=== PATIENT | female | born 1935 | race Caucasian/White ===

== ENCOUNTER 2018-03-12 14:42 | Inpatient (IN) | payer MEDICARE, OTHER ==
[~2018-03-12] VITALS: Ht 165.1 cm; Wt 66.7 kg
[2018-03-12 15:00] VITALS: BP 198/89
[2018-03-12] MEDS ORDERED: VANCOMYCIN 1GM/NS 250 ML 250 ML IV SCH ×2 (15:30→17:00)
[2018-03-12 15:47] VITALS: BP 198/89
--- NOTE | 2018-03-12 15:50 | History and Physical ---
An 82-year-old female with a past medical history positive for diabetes and hypertension. The [facility] due to the fact that she was having some cellulitis of the right big toe with osteomyelitis. REVIEW OF SYSTEMS CARDIOVASCULAR: No chest pain or palpitation. RESPIRATORY: No shortness of breath. No cough. GASTROINTESTINAL: No nausea, vomiting or diarrhea. GENITOURINARY: No frequency and no dysuria. ALLERGIES: NOT ALLERGIC TO ANY MEDICATION. SOCIAL HISTORY: She lives in a [facility]. She does not smoke. She does not drink. PAST MEDICAL HISTORY: Positive for diabetes and hypertension. PHYSICAL EXAMINATION HEART: Shows regular rhythm. Normal S1 and S2 sounds. LUNGS: Clear bilaterally. EXTREMITIES: Show the swelling, redness and tenderness of the right big toe. ABDOMEN: Soft, nontender and no distention. No visceromegaly. FINAL IMPRESSION 1. Osteomyelitis of the right big toe. 2. Uncontrolled hypertension. 3. Diabetes mellitus, type 2. 4. Dysphagia. PLAN OF TREATMENT: Going to order a CBC, BMP, MRI of the right foot. Consult Dr. Yarbrough for infectious disease. Consult Dr. Mae from podiatry. We are going to also order vancomycin 1 g IVPB twice a day. Cefepime 1 g IVPB twice a day. We are going to order an arterial Doppler on both lower extremities. Resume [facility] medications. Diet is diabetic diet and low-salt diet. Continue monitoring blood sugar a.c. and at night. Resume [facility] medications. I discussed the case with the patient and with the nurse at the bedside. Time spent 45 minutes. Job#: [id number] CARLOS
[2018-03-12 16:10] LABS: BASOPHILS % 0.4 % (0.0-1.0); EOSINOPHILS # (AUTO) 0.1 (0.0-0.4); EOSINOPHILS % 1.7 % (0.0-6.0); HEMATOCRIT 33.3 % (34.2-44.1); HEMOGLOBIN 10.4 g/dL (12.0-16.0); LYMPHOCYTES # (AUTO) 1.4 (1.0-3.2); LYMPHOCYTES % 29.2 % (18.0-39.1); MEAN CORPUSCULAR HEMOGLOBIN 26.4 pg (28-32); MEAN CORPUSCULAR HGB CONC 31.2 g/dL (31-35); MEAN CORPUSCULAR VOLUME 84.5 fL (81-99); MONOCYTES # (AUTO) 0.3 (0.2-0.8); MONOCYTES % 5.8 % (4.4-11.3); NEUTROPHILS # (AUTO) 2.9 (2.1-6.9); NEUTROPHILS % 62.7 % (38.7-80.0); PLATELET COUNT 319 x10e3/uL (140-360); RED BLOOD COUNT 3.94 x10e6/uL (3.6-5.1); RED CELL DISTRIBUTION WIDTH 14.3 % (11.7-14.4)
[2018-03-12 16:30] LABS: ALBUMIN 3.5 g/dL (3.5-5.0); ALBUMIN/GLOBULIN RATIO 0.8 (0.8-2.0); CALCIUM 9.6 mg/dL (8.4-10.2); CREATININE, SERUM 0.9 mg/dL (0.57-1.11)
[2018-03-12] MEDS ORDERED: CEFEPIME HCL 1 GM VIAL IV SCH (16:30)
[2018-03-12] MEDS: HYDROCODONE/APAP 7.5MG-325MG 1 EA TAB PO PRN ×2 (17:10→23:18)
--- NOTE | 2018-03-12 17:33 | Consultation ---
DATE OF CONSULTATION: March 12, 2018 REASON FOR CONSULTATION: Osteomyelitis, right big toe. HISTORY OF PRESENT ILLNESS: This is a very pleasant, 82-year-old female who comes from a senior living with history diabetes mellitus, history of hypertension. Comes in from a senior living with redness and swelling of the right big which she had for some time. Apparently, she took oral antibiotic as outpatient without any improvement. The patient does not really provide any history of how did this happen, but she knows she is in the hospital. The patient has no family at the present time. PAST MEDICAL HISTORY: Diabetes mellitus and hypertension. PAST SURGICAL HISTORY: She denies. ALLERGIES: NKA. SOCIAL HISTORY: There is no smoking, drug abuse or alcohol abuse. She is from a senior living. FAMILY HISTORY: Diabetes mellitus. REVIEW OF SYSTEMS: HEENT: Negative. PULMONARY: Negative. CARDIAC: Negative. : Negative. SKIN: There is no rash. JOINTS: She has chronic aches and pain. NEURO: No seizure activity. LABORATORY DATA: White count 4.63. Hemoglobin 10.4. Sodium 135. Potassium 5.0. Creatinine 0.9. PHYSICAL EXAMINATION: GENERAL: Alert, oriented, does not seem to be in any acute distress. VITAL SIGNS: Stable, currently afebrile. HEENT: Normocephalic. Not icteric. NECK: Supple. No JVD. No carotid bruits. No thyromegaly. CHEST: Clear bilaterally. HEART: S1 and S2, no S3, S4 or murmur. ABDOMEN: Soft. Bowel sounds present. No tenderness. EXTREMITIES: On the right foot there is redness with swelling. There is erythema. No drainage. IMPRESSION AND PLAN: Cellulitis of the right big toe. She comes to us with diagnosis of osteomyelitis, which probably she has by history. Agree with x-ray and MRI with contrast. Obtain a sed rate and C-reactive protein. Put on vancomycin and cefepime. She is coming from a senior living. She is probably has methicillin-resistant Staphylococcus aureus.. History of daily. History of hypertension. Recommend vascular workup. Further recommendations to follow. Will discuss with Dr. Shields. Job#: [id number]
[2018-03-12] MEDS ORDERED: NIFEDIPINE CR 30 MG TAB PO ONE (17:45)
[2018-03-12] MEDS: MEMANTINE 10 MG TAB PO SCH (18:16)
[2018-03-12 20:00] VITALS: BP 124/71
[2018-03-12 20:38] VITALS: BP 139/61
[2018-03-12] MEDS ORDERED: DIVALPROEX SODIUM 250 MG TAB...DR PO SCH (21:00)
[2018-03-12] MEDS: DIVALPROEX SODIUM 125 MG TABDR...ER PO SCH (21:00)
[2018-03-12] MEDS: VANCOMYCIN 1GM/NS 250 ML 250 ML IV SCH ×2 (21:00→22:30)
[2018-03-12] MEDS: CEFEPIME HCL 1 GM VIAL IV SCH ×2 (21:16→22:30)
[2018-03-12] MEDS ORDERED: SODIUM CHLORIDE 0.9% 250ML 250 ML ONE (22:10)
--- NOTE | 2018-03-12 22:22 | Diagnostic Imaging Report ---
EXAM: FOOT RIGHT COMPLETE, AP, lateral and oblique INDICATION: Right foot pain, osteomyelitis COMPARISON: None FINDINGS: BONES: Erosion of the distal first phalanx and lucencies throughout the first digit proximal phalanx and distal metatarsal. JOINTS: No malalignment. SOFT TISSUES: Diffuse soft tissue swelling of the forefoot. IMPRESSION: Osteomyelitis of the first digit distal phalanx. Lucencies of the first digit proximal phalanx and metatarsal are suspicious for additional involvement. An MRI of the right foot is recommended to evaluate for extent of osteomyelitis. Signed by: Dr. Nilda Garza M.D. on 03/12/2018 10:18 PM
[2018-03-13] VITALS (7 sets, daily range): BP systolic 116–162; BP diastolic 57–119
[2018-03-13] MEDS: KETOROLAC TROMETHAMINE 30 MG/ML VIAL IV PRN ×2 (02:33→21:31)
[2018-03-13 05:57] LABS: ANION GAP 12.8 mmol/L (8-16); CALCIUM 8.8 mg/dL (8.4-10.2); CREATININE, SERUM 0.9 mg/dL (0.57-1.11); INR 1.17; POTASSIUM 4.8 mmol/L (3.5-5.1)
[2018-03-13] MEDS: HYDROCODONE/APAP 7.5MG-325MG 1 EA TAB PO PRN ×2 (05:58→15:00)
--- NOTE | 2018-03-13 07:46 | Progress Note ---
DATE: March 13, 2018 SUBJECTIVE: Patient is seen at bedside. Doing well. Having some discomfort to the right foot. Did not sleep well last night. OBJECTIVE: Vitals: Afebrile. Pulse rate 65. Respirations 22. Blood pressure 116/57. O2 saturation 97%. Swollen right great toe noted with some foul smell. Decreased cellulitis since she has been getting her antibiotics. X-rays seen. No gas in the tissue. Does have some osteolucency to the distal phalanx of the right great toe consistent with osteomyelitis. ASSESSMENT: Cellulitis with osteomyelitis of right great toe with erythema surrounding the 1st metatarsophalangeal joint. PLAN: Will continue IV antibiotics. Continue local wound care. Will let the foot demarcate. Definitive surgical intervention will be done some time next week. Job#: [id number] HARRIETT
[2018-03-13] MEDS: VANCOMYCIN 1GM/NS 250 ML 250 ML IV SCH ×2 (09:21→21:00)
[2018-03-13] MEDS: MEMANTINE 10 MG TAB PO SCH ×2 (09:34→17:39)
[2018-03-13] MEDS: MULTIVITAMINS/MINERALS TAB PO SCH (09:34)
[2018-03-13] MEDS: NIFEDIPINE CR 30 MG TAB PO SCH (09:34)
[2018-03-13] MEDS: CEFEPIME HCL 1 GM VIAL IV SCH ×2 (10:00→22:00)
[2018-03-13] MEDS ORDERED: CLONIDINE HCL 0.1 MG TAB PO PRN (12:45)
--- NOTE | 2018-03-13 13:20 | Progress Note ---
DATE: March 13, 2018 INTERNAL MEDICINE PROGRESS NOTE SUBJECTIVE: This is an 82-year-old female who came here because of osteomyelitis of the right big toe. PHYSICAL EXAMINATION VITAL SIGNS: Blood pressure 121/60. Temperature 97.9. Heart rate 64 per minute. Respiratory rate is 18 per minute. Oxygen saturation 100%. HEART: Regular rhythm. Normal S1, S2 sounds. She has a systolic murmur in the mitral area, 3/6. LUNGS: Clear bilaterally. ABDOMEN: Soft. EXTREMITIES: Significant swelling and redness on the right big toe. LABS: On the blood work, we have BMP with sodium 138, potassium 4.8, chloride 105, CO2 25, BUN 19, creatinine 0.90. Glucose 82. On the CBC, white blood count 4.63, hemoglobin 10.4, hematocrit 33.3, platelet count 319,000. PT 14.0, PTT 35.8, INR 1.17. AST 13, ALT 11, total bilirubin 0.2, alkaline phosphatase 83. X-rays of the right foot showed evidence of osteomyelitis of the right big toe. MRI of the right foot has been done, and the report is pending. FINAL IMPRESSION 1. Osteomyelitis and cellulitis of the right big toe with open wounds. 2. Uncontrolled diabetes mellitus, type 2. 3. Essential hypertension. 4. Dementia. PLAN OF TREATMENT 1. Continue vancomycin 1 gram IV twice a day. 2. Lisinopril 40 mg daily. 3. Melatonin 3 mg at bedtime. 4. Nifedipine 60 mg daily. 5. Toradol 10 mg IV q.6 h. as needed for severe pain. 6. Multivitamin 1 tablet daily. 7. Tramadol 50 mg q.6 h. as needed. 8. Namenda 5 mg twice a day. 9. Depakote 125 mg daily. 10. Bivalve 1 tablet every 6 hours as needed for severe pain. 11. Cefepime 1 gram IV piggyback twice a day. Dr. Mae, bar useful or busser, will decide about whether or not the patient is to have any procedure. After that, the patient most likely will meet criteria to go to a [id number]. Job#: [id number]
--- NOTE | 2018-03-13 14:21 | Diagnostic Imaging Report ---
TECHNIQUE: Magnetic resonance imaging of the RIGHT foot was performed WITHOUT injected contrast. HISTORY: Pain, evaluate for infection COMPARISON: None available. DISCUSSION: Bone marrow edema with T1 replacement involving the distal phalanx of the hallux. The remainder of the bone marrow signal appears unremarkable. Evaluation is limited due to patient motion and inability to cooperate with exam per research food technologist. 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 Generalized atrophy of the foot musculature. IMPRESSION: Osteomyelitis distal phalanx of the hallux. Signed by: Dr. Armando Tobar M.D. on 03/13/2018 2:18 PM
[2018-03-13] MEDS: LISINOPRIL 20 MG TAB PO SCH (15:46)
[2018-03-13] MEDS: INSULIN REGULAR, HUMAN 100 UNIT/1 ML 3ML VIAL SQ SCH ×2 (16:30→21:00)
[2018-03-13] MEDS: DIVALPROEX SODIUM 125 MG TABDR...ER PO SCH (21:00)
[2018-03-14] VITALS (7 sets, daily range): BP systolic 127–137; BP diastolic 57–82
[2018-03-14] MEDS: INSULIN REGULAR, HUMAN 100 UNIT/1 ML 3ML VIAL SQ SCH ×4 (07:30→21:00)
[2018-03-14] MEDS ORDERED: NORCO 7.5-3251 EACH PO (08:05)
[2018-03-14] MEDS ORDERED: NAMENDA10 MG PO (08:05)
[2018-03-14] MEDS ORDERED: LISINOPRIL10 MG PO (08:05)
[2018-03-14] MEDS ORDERED: ACETAMINOPHEN650 M1 PO (08:05)
[2018-03-14] MEDS ORDERED: MELATONIN3 MG PO (08:05)
[2018-03-14] MEDS ORDERED: PROCARDIA XL30 MG PO (08:05)
[2018-03-14] MEDS ORDERED: DEPAKOTE SPRIN125 MG PO (08:05)
[2018-03-14] MEDS ORDERED: ULTRAM 50MG50 MG PO (08:05)
[2018-03-14] MEDS ORDERED: MULTIPLE VITAM1 EAC2 PO (08:05)
[2018-03-14] MEDS: LISINOPRIL 20 MG TAB PO SCH (09:00)
[2018-03-14] MEDS: NIFEDIPINE CR 30 MG TAB PO SCH (09:00)
[2018-03-14] MEDS: VANCOMYCIN 1GM/NS 250 ML 250 ML IV SCH ×2 (09:00→22:00)
[2018-03-14] MEDS: MEMANTINE 10 MG TAB PO SCH ×2 (09:00→17:00)
[2018-03-14] MEDS: MULTIVITAMINS/MINERALS TAB PO SCH (09:00)
[2018-03-14] MEDS: KETOROLAC TROMETHAMINE 30 MG/ML VIAL IV PRN (09:25)
--- NOTE | 2018-03-14 09:35 | Progress Note ---
DATE: March 14, 2018 SUBJECTIVE: Patient seen at bedside in good spirits, having some discomfort to the left great toe and left first metatarsophalangeal joint. OBJECTIVE VITAL SIGNS: Afebrile. Pulse rate 78, respirations 18, blood pressure 127/63, and O2 saturation 94%. EXTREMITIES: Pedal pulses palpable. Skin temperature warm to touch. Has erythema surrounding the first metatarsophalangeal joint and pain upon palpation and range of motion. CT results were evaluated, consistent with osteomyelitis of the distal phalanx. ASSESSMENT: Grade 3 ulceration, distal aspect, left great toe osteomyelitis, hallux valgus deformity with pain. PLAN: We will continue IV antibiotics, let the foot demarcate. Patient will be scheduled for surgical intervention this coming Saturday. We will continue local wound care. Continue offloading until then. Job#: [id number] ROYER
[2018-03-14] MEDS: CEFEPIME HCL 1 GM VIAL IV SCH ×2 (10:00→22:00)
[2018-03-14] MEDS: HYDROCODONE/APAP 7.5MG-325MG 1 EA TAB PO PRN ×2 (11:55→23:12)
--- NOTE | 2018-03-14 14:06 | Consultation ---
DATE OF CONSULTATION: March 12, 2018 REASON FOR CONSULTATION: Possible osteomyelitis with pregangrenous changes noted to the right great toe with patient being a diabetic. HISTORY OF PRESENT ILLNESS: Most of the history was taken from the chart due to the fact that patient seems to be somewhat confused when questioning her as far as medical conditions. When questioning how long the toe has been swollen and red, she does not know exactly how long. It is somewhat painful upon palpation. Upon questioning if she had any nausea, fever, chills, patient denies. PAST MEDICAL HISTORY: Remarkable for hypertension and diabetes. SURGICAL HISTORY: Patient denies. ALLERGIES: PATIENT DENIES. SOCIAL HISTORY: Denies smoking drinking or any type of recreational drug use. Lives in a prison. FAMILY HISTORY: Remarkable for diabetes according to the patient. CURRENT MEDICATIONS: Note list in the chart including IV cefepime and vancomycin. VITALS: Afebrile, pulse rate 80, respiration 18, blood pressure 198/89, O2 saturation 93%. REVIEW OF SYSTEMS CARDIAC: Patient denies any palpitations or arrhythmias. RESPIRATORY: Denies any shortness of breath, productive cough. GASTROINTESTINAL: Denies any constipation or abdominal pain. LABS: Has a white blood cell count of 4.6, hemoglobin 10.4, hematocrit 33.3 with a platelet count of 319,000. PODIATRIC PHYSICAL EXAMINATION VASCULAR Pedal pulses of both the dorsalis pedis and posterior tibial arteries are palpable, but somewhat diminished. Skin temperature warm to touch. No cyanosis noted. NEUROLOGICAL Seems to be somewhat diminished. The patient does have hypersensitivity, right foot, when compared to the left. MUSCULOSKELETAL Shows muscle mass to be symmetrical and wasted muscle strength to be 3/5 to 4/5 to all muscle groups. It is uncertain if patient is able to walk. DERMATOLOGICAL Reveals a very swollen right great toe when compared to contralateral side. infection with foul smell present. Has erythema surrounding the 1st metatarsophalangeal joint. ASSESSMENT: Possible osteomyelitis with cellulitis, right foot. PLAN: Will start diluted wet-to-dry Betadine b.i.d. to the right great toe. Continue IV antibiotics. X-rays 3 views will be ordered. Will continue to follow. Job#: [id number] CQ
--- NOTE | 2018-03-14 16:08 | Progress Note ---
DATE: March 14, 2018 INTERNAL MEDICINE PROGRESS NOTE SUBJECTIVE: She is doing well. No significant complaints. PHYSICAL EXAM: VITAL SIGNS: Blood pressure 137/57. Temperature 96.8. Heart rate 70 per minute. Respiratory rate is 20 per minute. Oxygen saturation 100%. HEART: Regular rhythm. No murmur. No extra sounds. LUNGS: Clear bilaterally. ABDOMEN: Soft. EXTREMITIES: Show dressing on the right foot. BLOOD WORK: We have BMP with a sodium 138, potassium 4.8, chloride 105, CO2 25, BUN 19, creatinine 0.90. Glucose 82. On the CBC white blood count 4.63, hemoglobin 10.4, hematocrit 33.3, platelet count 318,000. PT 14.0, INR 1.17. PTT 35.8. AST13, ALT 11, total bilirubin 0.2, alkaline phosphatase 53. FINAL IMPRESSION: 1. Cellulitis and osteomyelitis of the right big toe. 2. Diabetes mellitus type 2. 3. Essential hypertension. PLAN OF TREATMENT: Going to continue with vancomycin 1 gram IV piggyback twice a day. Lisinopril 40 mg daily. Tylenol 325 mg q.4 h. as needed. Melatonin 3 mg at bedtime. Nifedipine 60 mg daily. Toradol 10 mg IV q.6 h. a needed. Multivitamin 1 tablet daily. Tramadol 50 mg q.6 h. as needed. Clonidine 0.1 mg q.8 h. as needed. Namenda 5 mg twice a day. Depakote 125 mg at bedtime. Continue monitoring blood sugar a.c. and nightly. Continue cefepime 1 gram IV piggyback twice a day and [place] 1 tablet q.6 h. as needed for pain. Tentative possible surgery next week. Most likely she is going to end up going to [facility] for continuation of the IV antibiotics and wound care. She needs a total of 6 weeks of IV antibiotics. Job#: [id number]
[2018-03-14] MEDS: DIVALPROEX SODIUM 125 MG TABDR...ER PO SCH (21:25)
[2018-03-14] MEDS: MELATONIN 3 MG TAB PO PRN (23:11)
[2018-03-15] VITALS (7 sets, daily range): BP systolic 123–162; BP diastolic 60–77
[2018-03-15 05:35] LABS: ANION GAP 11.6 mmol/L (8-16); CALCIUM 8.9 mg/dL (8.4-10.2); CREATININE, SERUM 0.91 mg/dL (0.57-1.11); POTASSIUM 4.6 mmol/L (3.5-5.1)
[2018-03-15] MEDS: TRAMADOL HCL 50 MG TAB PO PRN (06:37)
[2018-03-15] MEDS: INSULIN REGULAR, HUMAN 100 UNIT/1 ML 3ML VIAL SQ SCH ×4 (07:30→21:00)
[2018-03-15] MEDS: VANCOMYCIN 1GM/NS 250 ML 250 ML IV SCH ×2 (09:00→21:57)
[2018-03-15] MEDS: HYDROCODONE/APAP 7.5MG-325MG 1 EA TAB PO PRN (09:00)
[2018-03-15] MEDS: MULTIVITAMINS/MINERALS TAB PO SCH (09:00)
[2018-03-15] MEDS: MEMANTINE 10 MG TAB PO SCH ×2 (09:00→17:00)
[2018-03-15] MEDS: LISINOPRIL 20 MG TAB PO SCH (09:00)
[2018-03-15] MEDS: NIFEDIPINE CR 30 MG TAB PO SCH (09:00)
[2018-03-15] MEDS: CEFEPIME HCL 1 GM VIAL IV SCH ×2 (10:00→22:39)
--- NOTE | 2018-03-15 12:48 | Progress Note ---
DATE: March 15, 2018 PODIATRY PROGRESS NOTE SUBJECTIVE: Patient seen at bedside. Having pain along the 1st MPJ distal aspect of the right great toe and also dorsal aspect of the 2nd and 5th digits right foot. Is denying any history of fever, chills, nausea or vomiting. Upon touching the above-mentioned areas, patient complaining and flinching secondary to her pain. Pedal pulses are palpable but diminished. Has an ulcer to the distal aspect of the right great toe, foul smell present. Pedal pulses to both the DP and PT are palpable but diminished. Has pain overlying the 5th digit right foot secondary to a painful dorsal lesion overlying the proximal interphalangeal joint. Has a contracted 2nd toe right foot also causing some pain upon range of motion and pain along the 1st metatarsophalangeal joint of the right foot. ASSESSMENT: 1. Osteomyelitis. 2. Grade 3 ulcer. 3. Hallux valgus deformity. 4. 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 PLAN: Will continue local wound care. Dressing was changed. Continue IV antibiotics. Patient will be taken for surgical intervention on Saturday once the toe completely demarcates. Will try to salvage most of the toe. Surgery will consist of an I\T\D, partial resection or a complete amputation of the right great toe, Silver bunionectomy and arthroplasty 2nd and 5th digits right foot. Job#: [id number] SHANNON
[2018-03-15] MEDS: DIVALPROEX SODIUM 125 MG TABDR...ER PO SCH (21:57)
[2018-03-16] VITALS (9 sets, daily range): BP systolic 124–170; BP diastolic 60–91
[2018-03-16] MEDS: HYDROCODONE/APAP 7.5MG-325MG 1 EA TAB PO PRN ×2 (01:10→16:36)
[2018-03-16 05:24] LABS: BASOPHILS % 0.6 % (0.0-1.0); EOSINOPHILS # (AUTO) 0.2 (0.0-0.4); EOSINOPHILS % 3.4 % (0.0-6.0); HEMATOCRIT 29.3 % (34.2-44.1); HEMOGLOBIN 9.3 g/dL (12.0-16.0); LYMPHOCYTES # (AUTO) 1.7 (1.0-3.2); LYMPHOCYTES % 36.6 % (18.0-39.1); MEAN CORPUSCULAR HEMOGLOBIN 26.5 pg (28-32); MEAN CORPUSCULAR HGB CONC 31.7 g/dL (31-35); MEAN CORPUSCULAR VOLUME 83.5 fL (81-99); MONOCYTES # (AUTO) 0.3 (0.2-0.8); MONOCYTES % 7.1 % (4.4-11.3); NEUTROPHILS # (AUTO) 2.4 (2.1-6.9); NEUTROPHILS % 52.1 % (38.7-80.0); PLATELET COUNT 285 x10e3/uL (140-360); RED BLOOD COUNT 3.51 x10e6/uL (3.6-5.1); RED CELL DISTRIBUTION WIDTH 14.4 % (11.7-14.4)
[2018-03-16 05:39] LABS: ALANINE AMINOTRANSFERASE 13 IU/L (0-55); ALBUMIN 3.1 g/dL (3.5-5.0); ALBUMIN/GLOBULIN RATIO 0.8 (0.8-2.0); ALKALINE PHOSPHATASE 64 IU/L (40-150); ANION GAP 10.4 mmol/L (8-16); BLOOD UREA NITROGEN 15 mg/dL (7-26); BUN/CREATININE RATIO 18 (6-25); CALCIUM 9.2 mg/dL (8.4-10.2); CARBON DIOXIDE 26 mmol/L (22-29); CHLORIDE 106 mmol/L (98-107); CREATININE, SERUM 0.84 mg/dL (0.57-1.11); EST GLOMERULAR FILTRATION RATE > 60 ML/MIN (60-); GLUCOSE 87 mg/dL (74-118); POTASSIUM 4.4 mmol/L (3.5-5.1); SODIUM 138 mmol/L (136-145)
[2018-03-16] MEDS: LISINOPRIL 20 MG TAB PO SCH (05:46)
[2018-03-16] MEDS: NIFEDIPINE CR 30 MG TAB PO SCH (05:47)
[2018-03-16] MEDS: INSULIN REGULAR, HUMAN 100 UNIT/1 ML 3ML VIAL SQ SCH ×4 (07:30→21:00)
[2018-03-16] MEDS: VANCOMYCIN 1GM/NS 250 ML 250 ML IV SCH ×2 (08:30→21:00)
[2018-03-16] MEDS: MULTIVITAMINS/MINERALS TAB PO SCH (08:30)
[2018-03-16] MEDS: MEMANTINE 10 MG TAB PO SCH ×2 (08:30→16:37)
[2018-03-16] MEDS: CEFEPIME HCL 1 GM VIAL IV SCH ×2 (09:13→22:06)
--- NOTE | 2018-03-16 15:54 | Progress Note ---
DATE: March 16, 2018 PODIATRY CONSULTATION SUBJECTIVE: Patient seen at bedside. Having some discomfort to the right lower extremity to the distal aspect right great toe, medial aspect of the 1st MPJ, and dorsal aspect of the 2nd and 5th digits. OBJECTIVE VITAL SIGNS: Afebrile. Pulse rate 76, respirations 20, blood pressure 124/60, O2 saturation 95%. Labs noted. Has a white blood cell count of 4.6, hemoglobin 9.3, hematocrit 29.3 with a platelet count of 285. INR 1.17. Has a foul smell noted to the distal aspect right great toe secondary to an ulcer/abscess and osteomyelitis. Has pain along the 1st MPJ. Contracted digits 2nd and 5th digits with pedal pulses palpable and skin temperature warm to touch. ASSESSMENT: 1. Contracted hammertoes 2nd and 5th digits right. 2. Hallux valgus deformity. 3. Osteomyelitis with abscess right great toe. PLAN: Will continue IV antibiotics. Continue local wound care. Dressing was changed. Patient will be consented for surgical intervention tomorrow, to have surgery on Saturday. Surgery will consist of an I\T\D of the right great toe, partial resection and possible complete amputation of the right great toe, partial resection of 1st metatarsal head with arthroplasty 2nd and 5th digits right foot. Will continue vancomycin and cefepime for now. Job#: [id number] EV
[2018-03-16] MEDS: DIVALPROEX SODIUM 125 MG TABDR...ER PO SCH (22:06)
[2018-03-17] VITALS (8 sets, daily range): BP systolic 125–158; BP diastolic 61–83
[2018-03-17] MEDS: HYDROCODONE/APAP 7.5MG-325MG 1 EA TAB PO PRN ×2 (01:31→08:40)
[2018-03-17] MEDS: TRAMADOL HCL 50 MG TAB PO PRN (05:17)
[2018-03-17 06:10] LABS: BASOPHILS % 0.6 % (0.0-1.0); EOSINOPHILS # (AUTO) 0.1 (0.0-0.4); EOSINOPHILS % 2.9 % (0.0-6.0); HEMATOCRIT 30.3 % (34.2-44.1); HEMOGLOBIN 9.5 g/dL (12.0-16.0); LYMPHOCYTES # (AUTO) 1.5 (1.0-3.2); LYMPHOCYTES % 30.7 % (18.0-39.1); MEAN CORPUSCULAR HEMOGLOBIN 26.8 pg (28-32); MEAN CORPUSCULAR HGB CONC 31.4 g/dL (31-35); MEAN CORPUSCULAR VOLUME 85.4 fL (81-99); MONOCYTES # (AUTO) 0.3 (0.2-0.8); MONOCYTES % 7.1 % (4.4-11.3); NEUTROPHILS # (AUTO) 2.8 (2.1-6.9); NEUTROPHILS % 58.3 % (38.7-80.0); PLATELET COUNT 285 x10e3/uL (140-360); RED BLOOD COUNT 3.55 x10e6/uL (3.6-5.1); RED CELL DISTRIBUTION WIDTH 14.2 % (11.7-14.4)
[2018-03-17 06:28] LABS: ANION GAP 12.5 mmol/L (8-16); BLOOD UREA NITROGEN 15 mg/dL (7-26); BUN/CREATININE RATIO 18 (6-25); CALCIUM 9.2 mg/dL (8.4-10.2); CARBON DIOXIDE 23 mmol/L (22-29); CHLORIDE 108 mmol/L (98-107); CREATININE, SERUM 0.82 mg/dL (0.57-1.11); EST GLOMERULAR FILTRATION RATE > 60 ML/MIN (60-); GLUCOSE 86 mg/dL (74-118); POTASSIUM 4.5 mmol/L (3.5-5.1); SODIUM 139 mmol/L (136-145)
[2018-03-17] MEDS: INSULIN REGULAR, HUMAN 100 UNIT/1 ML 3ML VIAL SQ SCH ×2 (07:30→11:30)
[2018-03-17] MEDS: MEMANTINE 10 MG TAB PO SCH ×2 (08:40→17:56)
[2018-03-17] MEDS: MULTIVITAMINS/MINERALS TAB PO SCH (08:40)
[2018-03-17] MEDS: NIFEDIPINE CR 30 MG TAB PO SCH (08:41)
[2018-03-17] MEDS: LISINOPRIL 20 MG TAB PO SCH (08:41)
--- NOTE | 2018-03-17 09:58 | Progress Note ---
DATE: March 17, 2018 SUBJECTIVE: Patient seen at bedside, having pain along the 1st MPJ distal aspect of right great toe and dorsal aspect of the 2nd and 5th digits. OBJECTIVE: Vitals: Afebrile. Pulse rate 83, respirations 18, blood pressure 158/83, O2 saturation 98%. Labs show a white blood cell count of 4.8, hemoglobin 9.5, platelet count of 285. Ulceration to the distal aspect of right great toe has foul smell with subungual abscess. Has pain and erythema surrounding first MPJ and dorsal aspect of the 2nd and 5th digits with pain upon palpation and range of motion. ASSESSMENT 1. Osteomyelitis abscess, right foot. 2. Grade-3 ulcer, right foot. 3. Hallux valgus deformity and contracted hammertoes of 2nd and 5th digits. PLAN: The patient will be taken for surgical intervention tomorrow. Proposed surgery plus risks and complications reviewed. Patient understands no warranties or guarantees will be given. Surgery will consist of an I and D of right great toe, partial resection with possible complete amputation of the right great toe, partial resection of 1st metatarsal head/Silver bunionectomy, arthroplasty of 2nd and 5th digits, right foot. N.P.O. after midnight. Job#: [id number]
[2018-03-17] MEDS: CEFEPIME HCL 1 GM VIAL IV SCH ×2 (10:50→22:00)
--- NOTE | 2018-03-17 17:09 | Progress Note ---
DATE: INTERNAL MEDICINE PROGRESS NOTE SUBJECTIVE: The patient is doing well. She is going for a right toe surgery tomorrow. PHYSICAL EXAM: VITAL SIGNS: Blood pressure 139/78, temperature 97.3, heart rate 65 per minute, respiratory rate is 18 per minute. Oxygen saturation 98%. HEART: Shows regular rhythm. Normal S1 and S2 sounds. LUNGS: Clear bilaterally. ABDOMEN: Soft. No tenderness, no distention. EXTREMITIES: Show swelling on the right big toe. On the BMP: Sodium 139, potassium 4.5, chloride 108, CO2 23, BUN 15, creatinine 0.82, glucose 86. On the CBC: White blood count 4.82, hemoglobin 9.5, hematocrit 30.3, platelet count of 95,000. PT 14.0, INR 1.17, PTT 35.8. AST 16, ALT 13, total bilirubin 0.2, alkaline phosphatase 64. FINAL IMPRESSION: 1. Right big toe osteomyelitis. 2. Diabetes mellitus type 2. 3. Hypertension. Anemia of chronic disease. PLAN OF TREATMENT: Continue with the vancomycin 1 gram IV piggyback once a day. Lisinopril 40 mg daily. Cefepime 1 gram IV piggyback twice a day. Melatonin 3 mg at bedtime. Nifedipine 60 mg daily. Clonidine 0.1 mg 3 times a day as needed. Multivitamin tablet daily. Tramadol 50 mg q.6 h. as needed. Monitor blood sugar a.c. and nightly. Namenda 5 mg twice a day. Depakote 125 mg at bedtime. [place] 1 tablet q.6 h. as needed. Tentative surgery for tomorrow. Diet: Diabetic diet. Job#: [id number] EV
[2018-03-17] MEDS: VANCOMYCIN 1GM/NS 250 ML 250 ML IV SCH (20:28)
[2018-03-17] MEDS: DIVALPROEX SODIUM 125 MG TABDR...ER PO SCH (20:28)
[2018-03-18] VITALS (8 sets, daily range): BP systolic 146–184; BP diastolic 69–105
[2018-03-18] MEDS ORDERED: BETAMETHASONE DISODIUM PHOS 6 MG/ML VIAL ONE (06:50)
[2018-03-18] MEDS ORDERED: BUPIVACAINE HCL 0.5% INJ 30 ML VIAL INJ ONE (06:50)
[2018-03-18] MEDS ORDERED: MUPIROCIN 2% OINT 22 GM TUBE ONE (06:50)
[2018-03-18] MEDS ORDERED: LIDOCAINE HCL 1% LOCAL INJ 20 ML VIAL ONE (07:52)
[2018-03-18] MEDS ORDERED: BACITRACIN 50,000 UNIT VIAL ONE (08:17)
[2018-03-18] MEDS ORDERED: FENTANYL CITRATE/PF 100MCG/2 ML INJ ONE ×2 (09:17→17:42)
--- NOTE | 2018-03-18 09:52 | Diagnostic Imaging Report ---
PROCEDURE:X-RAY RIGHT FOOT, TWO VIEWS COMPARISON:Right foot radiographs 03/12/2018. INDICATIONS:STATUS POST RIGHT FOOT SURGERY FINDINGS: See conclusion. CONCLUSION: AP and lateral post-operative views of the right foot with overlying bandage material show postsurgical changes related to partial first ray amputation, including the distal phalanx and distal margin of the proximal phalanx with expected soft tissue changes. A surgical pin traverses the phalanges and metatarsal head of the second ray. Postsurgical changes of the distal margin of the fifth proximal phalanx. Dictated by: Deyvi Thomas M.D. on 03/18/2018 at 9:57 Electronically approved by: Deyvi Thomas M.D. on 03/18/2018 at 9:57
[2018-03-18] MEDS: MEMANTINE 10 MG TAB PO SCH ×2 (10:10→17:45)
[2018-03-18] MEDS: MULTIVITAMINS/MINERALS TAB PO SCH (10:10)
[2018-03-18] MEDS: LISINOPRIL 20 MG TAB PO SCH (10:10)
[2018-03-18] MEDS: NIFEDIPINE CR 30 MG TAB PO SCH (10:10)
[2018-03-18] MEDS: CEFEPIME HCL 1 GM VIAL IV SCH ×2 (10:10→22:00)
--- NOTE | 2018-03-18 10:14 | Operative Report ---
DATE OF PROCEDURE: March 18, 2018 PREOPERATIVE DIAGNOSES 1. Abscess, right foot. 2. Osteomyelitis, right foot. 3. Hallux valgus deformity, right foot. 4. Contracted hammertoe, 2nd digit, right foot. 5. Contracted hammertoe, 5th digit, right foot. POSTOPERATIVE DIAGNOSES 1. Abscess, right foot. 2. Osteomyelitis, right foot. 3. Hallux valgus deformity, right foot. 4. Contracted hammertoe, 2nd digit, right foot. 5. Contracted hammertoe, 5th digit, right foot. OPERATIVE PROCEDURES 1. Incision and drainage of abscess, right foot. 2. Partial resection/amputation, right great toe. 3. Silver bunionectomy, right foot. 4. Arthroplasty, 4th digit, right foot. 5. Arthroplasty, 5th digit, right foot. 6. Rotational flap closure, right foot. ANESTHESIA: General. HEMOSTASIS: Pneumatic thigh tourniquet at 350 mmHg. OPERATIVE PROCEDURE IN DETAIL: Patient was taken into the operating room and placed on the operating room table in the supine position. Following induction of general anesthesia by the anesthesiologist, Webril wraps were placed on the patient's right thigh followed by application of right thigh tourniquet. The right lower extremity was then prepped and draped in the usual aseptic manner. The following procedure was then performed. PROCEDURE #1: I and D of abscess, right foot. Attention was directed to the distal aspect of the right great toe where a curvilinear incision was performed. Deep abscess was going straight down to the distal phalanx. Severe foul smell and drainage noted. Deep cultures were taken for aerobic and anaerobic growth. Secondary to the infection at this time, procedure #2: Partial resection of the right great toe was performed. A racquet-shaped incision was performed overlying the proximal phalangeal joint. The distal part of the toe was the disarticulated and sent for pathological analysis. Utilizing an oscillating saw, the head of the proximal phalanx was then excised from the operation site in toto, and all rough and bony edges were rasped smooth. Necrotic tissue was removed until good viable tissue was achieved. At this point, the thigh tourniquet was then released. PROCEDURE #3: Silver bunionectomy, right foot. Attention was then directed to the medial aspect of the 1st metatarsophalangeal joint heel were a 6 cm linear incision was performed. Incision was deepened down to the joint capsule. Longitudinal capsulotomy was performed exposing the exostosis of the medial aspect of the 1st metatarsal head. Via use of an oscillating saw and rotating bur, the dorsomedial exostosis was excised from the operation site in toto. All rough and bony edges were rasped smooth. PROCEDURES #4 AND #5: Arthroplasty, 4th and 5th digits with K-wire fixation of 2nd toe, right foot. Attention was then directed to the dorsal aspect of the 2nd and 5th digits overlying the proximal phalangeal joint where a 3 cm linear incision was performed. Incision was then deepened down through the joint capsule. A transverse capsulotomy was then performed exposing the head of the proximal phalanxes of the 2nd and 5th digits. Via the use of an oscillating saw, the head the proximal phalanxes were excised from the operation site in toto. All rough and bony edges were rasped smooth. Second toe was still noted to be contracted, so a 0.045 K-wire was introduced crossing the metatarsophalangeal joint to achieve proper anatomical reduction. All areas then copiously flushed with sterile antibiotic solution and suctioned. PROCEDURE #6: Rotational flap closure. Attention was then redirected back to the right great toe where the incisions had to be lengthened medially dorsally and plantarly laterally to allow for a plantar flap to allow for closure with minimal skin tension. The flap was then dorsally displaced. Utilizing 3-0 Vicryl and 4-0 nylon, the flap was reapproximated and remodeled and closed with minimal skin tension. All other incisions were then copiously flushed with antibiotic solution and suctioned. Closure was then obtained utilizing 3-0 Vicryl, 4-0 nylon and 4-0 nylon for capsule, subcutaneous tissue and skin respectively. PROCEDURE #7: Intraoperative use of fluoroscopy was then used to make sure proper alignment and fixation was achieved. PROCEDURE #8: Trigger point shot of cortisone was then given to the 1st and 4th interspace of the right foot. Then approximately 10 mL of 0.5% plain Marcaine plus 5-6 mL of 1% Xylocaine plain were used to achieve local anesthesia to the above-mentioned surgical area. Sterile dressing was applied. Patient was then transferred from the OR to the recovery room with vital signs stable and neurovascular status intact. No intraoperative complications were encountered. Blood loss from the surgery was minimal. Patient will remain in hospital for IV antibiotics. If not responsive, may need a more proximal amputation. Job#: [id number] CARLOS
[2018-03-18] MEDS ORDERED: LIDOCAINE HCL 2% LOCAL INJ 5 ML SDV VIAL INJ ONE (17:36)
[2018-03-18] MEDS ORDERED: PROPOFOL IV EMULSION 10 MG/ML 20 ML VIAL ONE (17:36)
[2018-03-18] MEDS ORDERED: EPHEDRINE SULFATE INJ 50 MG/10 ML SYR ONE (17:36)
[2018-03-18] MEDS ORDERED: SEVOFLURANE INHAL SOLN 250 ML PEN BTL ONE (17:36)
[2018-03-18] MEDS: HYDROCODONE/APAP 7.5MG-325MG 1 EA TAB PO PRN ×2 (17:45→23:45)
--- NOTE | 2018-03-18 19:28 | Progress Note ---
DATE: INTERNAL MEDICINE PROGRESS NOTE She is doing well. Status post surgery on the right big toe by Dr. Mae. She had a partial amputation on the right big toe. PHYSICAL EXAMINATION VITALS: Blood pressure 146/69, temperature 97, heart rate 76 per minute, respiratory rate 17 per minute, oxygen saturation 96%. BLOOD WORK: We have BMP with sodium 139, potassium 4.5, chloride 108, CO2 23, BUN 15, creatinine 0.82, glucose 86. CBC: White blood count 4.82, hemoglobin 9.5, hematocrit 30.3, and platelet count 285,000. PT 14, INR 1.17, and PTT 35.8. AST 16, ALT 13, total bilirubin 0.2, alkaline phosphatase 64. FINAL IMPRESSION 1. Osteomyelitis, right big toe, status post surgery. 2. Hypertension. 3. Anemia of chronic disease. PLAN OF TREATMENT: Continue vancomycin 1 g IV once a day. Continue lisinopril 40 mg daily. Melatonin 3 mg at bedtime. Tramadol 50 mg q.6 h. Nifedipine 90 mg daily. Depakote 125 mg at bedtime. Multivitamin 1 tablet daily. Namenda 5 mg twice a day. Cefepime 1 g IVPB twice a day. [place] 1 tablet q.6 h. as needed for pain. Clonidine 0.1 mg 3 times a day as needed. We are waiting for the appeal on the denial of the insurance for her to go to a long-term care hospital. Job#: [id number] CARLOS
[2018-03-18] MEDS: DIVALPROEX SODIUM 125 MG TABDR...ER PO SCH (20:51)
[2018-03-18] MEDS: VANCOMYCIN 1GM/NS 250 ML 250 ML IV SCH (20:51)
[2018-03-18] MEDS: TRAMADOL HCL 50 MG TAB PO PRN (20:51)
[2018-03-19] VITALS (9 sets, daily range): BP systolic 105–188; BP diastolic 60–88
[2018-03-19] MEDS: MORPHINE SULFATE 2 MG/ML SYR IV PRN ×5 (00:16→21:47)
[2018-03-19] MEDS ORDERED: ZIPRASIDONE 20 MG VIAL IM PRN (00:45)
[2018-03-19] MEDS: MELATONIN 3 MG TAB PO PRN ×2 (01:10→21:46)
[2018-03-19] MEDS: MEMANTINE 10 MG TAB PO SCH ×2 (09:00→17:00)
[2018-03-19] MEDS: LISINOPRIL 20 MG TAB PO SCH (09:00)
[2018-03-19] MEDS: MULTIVITAMINS/MINERALS TAB PO SCH (09:00)
[2018-03-19] MEDS: NIFEDIPINE CR 30 MG TAB PO SCH (09:00)
[2018-03-19] MEDS: CEFEPIME HCL 1 GM VIAL IV SCH (10:00)
--- NOTE | 2018-03-19 17:47 | Progress Note ---
DATE: March 19, 2018 INTERNAL MEDICINE PROGRESS NOTE SUBJECTIVE: Patient is doing well except for some pain in the right foot after the partial amputation of the right big toe. PHYSICAL EXAM: VITAL SIGNS: Blood pressure 105/62. Temperature 99.3. Heart rate 82 per minute. Respiratory rate 18 per minute and oxygen saturation 96%. HEART: Regular rhythm. No murmur. No extra sounds. LUNGS: Clear bilaterally. ABDOMEN: Soft. EXTREMITIES: Show dressing on the right foot. BLOOD WORK: We have BMP with a sodium 139, potassium 4.5, chloride 108, CO2 33. BUN 15. Creatinine 0.82. Glucose 86. On the CBC white blood count 4.82. Hemoglobin 9.5, hematocrit 30.3, platelet count 295,000. PT 14.0. INR 1.17. PTT 35.8, AST 16, ALT 13 and total bilirubin 0.2, alkaline phosphatase 64. FINAL IMPRESSION: 1. Right big toe osteomyelitis. 2. Hypertension. 3. Anemia of chronic disease. PLAN OF TREATMENT: Continue current wound care. Continue vancomycin 1 gram IV piggyback ____ a day. Tylenol 325 mg q.4 h. as needed. Lisinopril 40 mg daily. Melatonin 3 mg at bedtime. Cefepime 1 gram IV twice a day. Multivitamin tablet daily. Clonidine 0.1 mg 3 times a day. Namenda 5 mg twice a day. Nifedipine 90 mg daily. Depakote 125 mg at bedtime. Morphine 2 mg IV q.3 h. as needed. They should not deny the patient from going to a long-term care hospital where we are awaiting the decision right now. Job#: [id number]
[2018-03-19] MEDS: DIVALPROEX SODIUM 125 MG TABDR...ER PO SCH (21:20)
[2018-03-19] MEDS: VANCOMYCIN 1GM/NS 250 ML 250 ML IV SCH (21:20)
[2018-03-20] VITALS: BP 131/79
[2018-03-20] MEDS: MORPHINE SULFATE 2 MG/ML SYR IV PRN ×5 (01:02→23:54)
[2018-03-20 04:00] VITALS: BP 134/65
[2018-03-20 08:00] VITALS: BP 148/67
[2018-03-20] MEDS: LISINOPRIL 20 MG TAB PO SCH (09:00)
[2018-03-20] MEDS: MULTIVITAMINS/MINERALS TAB PO SCH (09:00)
[2018-03-20] MEDS: MEMANTINE 10 MG TAB PO SCH ×2 (09:00→17:00)
[2018-03-20] MEDS: NIFEDIPINE CR 30 MG TAB PO SCH (09:00)
[2018-03-20] MEDS: CEFEPIME HCL 1 GM VIAL IV SCH ×2 (10:00→20:46)
[2018-03-20 12:00] VITALS: BP 129/59
[2018-03-20 16:00] VITALS: BP 102/50
[2018-03-20] MEDS: VANCOMYCIN 1GM/NS 250 ML 250 ML IV SCH (17:00)
--- NOTE | 2018-03-20 17:07 | Progress Note ---
DATE: March 20, 2018 INTERNAL MEDICINE PROGRESS NOTE SUBJECTIVE: She is doing well. She is sleeping. PHYSICAL EXAM: VITAL SIGNS: Blood pressure 129/59. Temperature 99.8. Heart rate 78 per minute. Respiratory rate is 20 per minute. Oxygen saturation 96%. HEART: Regular rhythm. No murmur. No extra sounds. LUNGS: Clear bilaterally. ABDOMEN: Soft. EXTREMITIES: Show dressing on the right leg where she had a partial amputation on the right big toe. On the BMP, sodium 139, potassium 4.5, chloride 108, CO2 23, BUN 15, creatinine 0.82. Glucose 86. On the CBC white blood count 4.82, hemoglobin 9.5, hematocrit 30.3, platelet count 285,000. PT 14.0, PTT 35.8. INR 1.17, AST 16, ALT 13, total bilirubin 0.2, alkaline phosphatase, 64. FINAL IMPRESSION: 1. Osteomyelitis of the right big toe, status post partial amputation of the right big toe. 2. Hypertension. 3. Anemia of chronic disease. PLAN OF TREATMENT: Continue vancomycin 1 gram IV piggyback twice a day. Lisinopril 40 mg daily. Melatonin 3 mg at night. Clonidine 0.1 mg 3 times a day. Cefepime 1 gram IV piggyback twice a day. Multivitamin 1 tablet daily. Nifedipine 90 mg daily. Namenda 5 mg twice a day. Morphine 2 mg IV q.3 h. as needed. Depakote 125 mg at bedtime and trazodone __ mg q.[address] Howard will be covering for me from March 21 at noontime until March 28 at 7 a.m. Job#: [id number]
--- NOTE | 2018-03-20 18:41 | Consultation ---
DATE OF CONSULTATION: March 20, 2018 REASONS FOR CONSULTATION 1. Debilitated state. 2. Osteomyelitis to the right lower extremity. 3. Hypertension. 4. Dementia. HISTORY: This 82-year-old female, with a history of diabetes and hypertension, [facility] the [facility] having some cellulitis of the right large toe. She was found to have osteomyelitis. The patient is being followed by Dr. Yarbrough for continuation of care and ID management. The patient is not able to give much history at all. She appears to be quite confused. I am being asked to evaluate for rehab needs. PAST MEDICAL HISTORY: Includes diabetes and hypertension. SURGERIES: Denies. ALLERGIES: NO KNOWN DRUG ALLERGIES. HABITS: Nonsmoker, nondrinker. SOCIAL HISTORY: She lives at the [facility]. FAMILY HISTORY: Diabetes runs in the family. LABS: White cell count 4.8, hemoglobin 9.5, hematocrit 30.3, platelets 285. Patient with foot x-ray which showed postsurgical changes of proximal 5th phalanx. Foot MRI showed osteomyelitis of the distal phalanx of the hallux. Review of the therapy notes shows she requires total assist of 2 with [id number] transfers. Able to sit up for about 10 minutes. Max assist with getting her clothes on. PHYSICAL EXAMINATION: The patient at this time is just not very cooperative. Whenever I go to touch her arm, she starts yelling. I explained to her who I was, and she was very agitated. She is lying in a position. Heart is regular. Lungs: Did not take a deep breath. Neck: No JVD. For the rest of the examination, she did not want me to touch her. IMPRESSION 1. Debilitation. 2. Right lower extremity osteomyelitis. 3. Diabetes. 4. Hypertension. PLAN: She lives at the [facility]. At this point, she is total assist or max assist with all ADLs and transfers. Most likely will be going back there. However, therapy will try to provide what they can to see if we can try to improve functional level if possible. PRECAUTIONS: Falls. Thank you once again for allowing me to participate in the care of this pleasant but unfortunate patient. Job#: [id number]
[2018-03-20 20:00] VITALS: BP 117/69
[2018-03-20] MEDS: DIVALPROEX SODIUM 125 MG TABDR...ER PO SCH (20:46)
[2018-03-20] MEDS: MELATONIN 3 MG TAB PO PRN (20:46)
[2018-03-21] VITALS (8 sets, daily range): BP systolic 99–145; BP diastolic 57–76
[2018-03-21] MEDS: MORPHINE SULFATE 2 MG/ML SYR IV PRN ×2 (06:11→10:30)
[2018-03-21] MEDS: ACETAMINOPHEN 325 MG TAB PO PRN ×2 (08:42→20:15)
[2018-03-21] MEDS: NIFEDIPINE CR 30 MG TAB PO SCH (08:42)
[2018-03-21] MEDS: MEMANTINE 10 MG TAB PO SCH ×2 (08:42→17:19)
[2018-03-21] MEDS: MULTIVITAMINS/MINERALS TAB PO SCH (08:42)
[2018-03-21] MEDS: LISINOPRIL 20 MG TAB PO SCH (08:42)
--- NOTE | 2018-03-21 09:10 | Progress Note ---
DATE: March 21, 2018 SUBJECTIVE: Patient is seen at bedside. Decreased pain to the right lower extremity. Denying any history of fever, chills, nausea, or vomiting. OBJECTIVE VITALS: Afebrile, pulse rate 80, respirations 18, blood pressure 132/70, O2 saturation 98%. EXTREMITIES: Dressing dry and intact. Decreased edema. Decreased skin temperature to the right lower extremity compared to the left. LABS: Noted. White blood cell count of 4.82, hemoglobin 9.5. ASSESSMENT: Status post right foot surgery, multiple procedures with flap closure. PLAN: Will continue IV antibiotics. Dressing will be changed possibly on Saturday. Looking okay. The patient may be discharged sometime next week. Will continue offloading. Job#: [id number] CARLOS
--- NOTE | 2018-03-21 10:00 | Progress Note ---
DATE: March 21, 2018 SUBJECTIVE: Ms. Bauman is 82-year-old female with history of diabetes, hypertension, [facility] from the [facility] complaining of cellulitis of the right foot and osteomyelitis. She has history of diabetes and hypertension. She has been seen by orthopedic and rehab. PHYSICAL EXAMINATION: GENERAL: Today, she is awake, alert, but a little aggressive. She gets upset very easy. VITAL SIGNS: Temperature is 99, blood pressure 133/70. HEART: Regular rate. LUNGS: Poor inspiratory effort. ABDOMEN: Soft. EXTREMITIES: Right foot is under dressing. BLOOD WORK: Potassium 4.5, creatinine is 0.82, glucose is 86. White count 4.82, hemoglobin 9.5, hematocrit 30.3. ASSESSMENT: 1. Right big toe, status post partial amputation with osteomyelitis. 2. Hypertension. 3. Anemia of chronic disease. 4. Diabetes. PLAN: At present time is to continue wound care, continue IV antibiotics. We are awaiting for LTAC evaluation and approval. If she gets approved, she may go to [facility]. Job#: [id number]
[2018-03-21] MEDS: VANCOMYCIN 1GM/NS 250 ML 250 ML IV SCH ×2 (10:30→17:00)
[2018-03-21] MEDS: CEFEPIME HCL 1 GM VIAL IV SCH ×2 (10:30→20:14)
[2018-03-21] MEDS: MELATONIN 3 MG TAB PO PRN (20:14)
[2018-03-21] MEDS: DIVALPROEX SODIUM 125 MG TABDR...ER PO SCH (20:14)
== END 2018-03-21 23:38 | DRG 617 ==
LOC: MED/SURG3 14:42
PROVIDERS: ADMIT Internal Medicine; ATTEND Internal Medicine
PROC: 0HXMXZZ Transfer Right Foot Skin, External Approach (ICD-10-PCS; 2018-03-18)
PROC: 0SSM04Z Reposition Right Metatarsal-Phalangeal Joint with Internal Fixation Device, Open Approach (ICD-10-PCS; 2018-03-18)
PROC: 0SQP0ZZ Repair Right Toe Phalangeal Joint, Open Approach (ICD-10-PCS; 2018-03-18)
PROC: 0SQP0ZZ Repair Right Toe Phalangeal Joint, Open Approach (ICD-10-PCS; 2018-03-18)
PROC: 0QBN0ZZ Excision of Right Metatarsal, Open Approach (ICD-10-PCS; 2018-03-18)
PROC: 0SNM0ZZ Release Right Metatarsal-Phalangeal Joint, Open Approach (ICD-10-PCS; 2018-03-18)
PROC: 0SNM0ZZ Release Right Metatarsal-Phalangeal Joint, Open Approach (ICD-10-PCS; 2018-03-18)
PROC: 0SNM0ZZ Release Right Metatarsal-Phalangeal Joint, Open Approach (ICD-10-PCS; 2018-03-18)
PROC: 0J9Q0ZX Drainage of Right Foot Subcutaneous Tissue and Fascia, Open Approach, Diagnostic (ICD-10-PCS; 2018-03-18)
PROC: 0Y6P0Z3 Detachment at Right 1st Toe, Low, Open Approach (ICD-10-PCS; principal; 2018-03-18 07:30)
DX: E11.69 Type 2 diabetes mellitus with other specified complication (principal); M86.171 Other acute osteomyelitis, right ankle and foot; M86.671 Other chronic osteomyelitis, right ankle and foot; E11.65 Type 2 diabetes mellitus with hyperglycemia; Z79.4 Long term (current) use of insulin; M20.42 Other hammer toe(s) (acquired), left foot; M20.41 Other hammer toe(s) (acquired), right foot; M21.611 Bunion of right foot; D63.8 Anemia in other chronic diseases classified elsewhere; M24.574 Contracture, right foot; I10 Essential (primary) hypertension; B95.62 Methicillin resistant Staphylococcus aureus infection as the cause of diseases classified elsewhere
CPT/HCPCS: 36415; 80048; 80053; 80202; 82948; 83036; 83525; 85025; 85610; 85651; 85730; 87071; 87075; 87205; 88305; 88311; 93005; 93925; 97139; J0692; J0720; J1885; J2001; J2270; J3370; J3486; J7050